=== PATIENT | female | born 1975 ===

== ENCOUNTER 2018-09-27 08:47 | Outpatient (CLI) | payer OTHER ==
[~2018-09-27] VITALS: Ht 167.6 cm; Wt 81.6 kg
== END 2018-09-27 09:10 | disposition home or self-care (01) ==
LOC: OFIC 805 08:47
DX: J30.89 Other allergic rhinitis (principal); R04.0 Epistaxis; R09.81 Nasal congestion

== ENCOUNTER → 2018-11-03 10:14 | Outpatient (CLI) | payer OTHER | END | disposition home or self-care (01) | LOC: LAB 10:14 | DX: E03.8 Other specified hypothyroidism (principal); D50.8 Other iron deficiency anemias; E78.2 Mixed hyperlipidemia; I11.9 Hypertensive heart disease without heart failure; E56.8 Deficiency of other vitamins; N39.0 Urinary tract infection, site not specified; Z12.11 Encounter for screening for malignant neoplasm of colon; E55.9 Vitamin D deficiency, unspecified; N19 Unspecified kidney failure; E11.9 Type 2 diabetes mellitus without complications; R80.8 Other proteinuria; C18.0 Malignant neoplasm of cecum; K92.1 Melena; R06.02 Shortness of breath ==

== ENCOUNTER 2018-11-15 08:43 | Outpatient (CLI) | payer OTHER ==
[~2018-11-15] VITALS: Ht 152.4 cm; Wt 81.6 kg
== END 2018-11-15 09:00 | disposition home or self-care (01) ==
LOC: OFIC 805 08:43
DX: J30.89 Other allergic rhinitis (principal); R04.0 Epistaxis; R09.81 Nasal congestion

== ENCOUNTER → 2019-03-02 09:52 | Outpatient (CLI) | payer OTHER | END | disposition home or self-care (01) | LOC: LAB 09:52 | DX: E78.2 Mixed hyperlipidemia (principal) ==

== ENCOUNTER → 2019-03-04 08:58 | Outpatient (CLI) | payer OTHER | END | disposition home or self-care (01) | LOC: LAB 08:58 | DX: D35.00 Benign neoplasm of unspecified adrenal gland (principal); D3A.00 Benign carcinoid tumor of unspecified site ==